=== PATIENT | female | born 1990 | race Caucasian/White ===

== ENCOUNTER → 2018-01-24 | Outpatient (CLI) | payer MEDICAID | END | disposition home or self-care (01) | LOC: LDOP 17:07 | PROVIDERS: ATTEND Student in an Organized Health Care Education/Training Program | DX: O22.31 Deep phlebothrombosis in pregnancy, first trimester (principal); Z3A.00 Weeks of gestation of pregnancy not specified | CPT/HCPCS: 72195; 74181 ==

== ENCOUNTER 2019-03-04 11:01 | Emergency (ER) | payer MEDICAID ==
[~2019-03-04] VITALS: Ht 167.6 cm; Wt 72.4 kg
--- NOTE | 2019-03-04 11:17 | NUR ---
TO ROOM 34. ORIENTED TO ROOM FOR SAFETY
[2019-03-04 11:54] LABS: BASOPHILS # (AUTO) 0.04 x10^3/uL (0-0.1); BASOPHILS % (AUTO) 1 % (0-1); EOSINOPHILS # (AUTO) 0.48 x10^3/uL (0-0.4); EOSINOPHILS % (AUTO) 9 % (1-7); LYMPHOCYTES % (AUTO) 42 % (22-44); MD NO; MEAN CORPUSCULAR VOLUME 65.6 fL (80-100); MEAN PLATELET VOLUME 9.4 fL (7.4-10.4); MONOCYTES % (AUTO) 8 % (2-9); NEUTROPHILS # (AUTO) 2.11 x10^3/uL (1.8-6.8); NEUTROPHILS % (AUTO) 40 % (42-75); PLATELET COUNT 276 x10^3/uL (130-400); RED CELL DISTRIBUTION WIDTH 13.8 % (9.6-15.2)
[2019-03-04 11:57] LABS: ALBUMIN 3.9 g/dL (3.4-5.0); ANION GAP 1 mmol/L (5-15); CALCIUM 8.5 mg/dL (8.5-10.1); CHLORIDE 108 mmol/L (98-107); CREATININE 0.99 mg/dL (0.55-1.02)
--- NOTE | 2019-03-04 12:08 | NUR ---
NO COMPLAINTS AT THIS TIME.
--- NOTE | 2019-03-04 13:03 | NUR ---
BS REPORT TO
--- NOTE | 2019-03-04 13:07 | NUR ---
RECEIVED REPORT FROM ANGIE DAVIS.
[2019-03-04 13:38] VITALS: BP 10/67
--- NOTE | 2019-03-04 13:38 | NUR ---
PT DISCHARGED AND AMBULATORY. PT GIVEN RX AND FOLLOW UP INSTRUCTIONS.
== END 2019-03-04 13:42 | disposition home or self-care (01) ==
LOC: ED 11:54
DX: G44.201 Tension-type headache, unspecified, intractable (principal); R20.2 Paresthesia of skin
CPT/HCPCS: 36415; 72125; 80048; 82040; 84443; 84703; 85025; 93005; 99284